=== PATIENT | male | born 1965 | race Caucasian/White ===

== ENCOUNTER 2021-09-12 08:20 | Day surgery (SDC) | payer BC ==
[2021-09-10 15:26] VITALS: BMI 29.8
[~2021-09-12 08:20] MED LIST: LACTATED RINGERS 1,000 ML IV SCH; LIDOCAINE 1% (10MG/ML) FOR IV START INTRADERMA PRN
[2021-09-12 08:57] VITALS: TEMP 98.1
[2021-09-12] MEDS ORDERED: PROPOFOL 10 MG/ML 20 ML VIAL IV ONE (09:15)
--- NOTE | 2021-09-12 09:31 | P.PCN ---
Date of Procedure: 09/12/21 Procedure(s) Performed: BRIEF HISTORY: Patient is a 56-year-old pleasant white male scheduled for an elective colonoscopy as a part of screening for colon cancer. PROCEDURE PERFORMED: Colonoscopy. PREOPERATIVE DIAGNOSIS: Screening for colon cancer. IV sedation per Anesthesia. PROCEDURE: After informed consent was obtained, the patient, was brought into the endoscopy unit. IV sedation was administered by Anesthesia under continuous monitoring. Digital rectal examination was normal. Initially the Olympus CF-160 flexible video colonoscope was then inserted in the rectum, gradually advanced into the cecum without any difficulty. Careful examination was performed as the scope was gradually being withdrawn. Ileocecal valve and the appendiceal orifice were visualized and appeared normal. Prep was excellent. Mucosa of the cecum, ascending colon, transverse colon, descending colon, sigmoid colon, and rectum appeared normal. Retroflexion was performed in the rectum and no lesions were seen. The patient tolerated the procedure well. IMPRESSION: Normal-appearing colon from rectum to cecum with no evidence of colorectal neoplasia . RECOMMENDATIONS: Findings of this examination were discussed with the patient as well as his family. Was advised to have a repeat screening colonoscopy in 10 years.
[2021-09-12 09:41] VITALS: RESP 16
[2021-09-12 10:00] VITALS: BP 147/89; PULSE 66
== END 2021-09-12 10:27 | disposition home or self-care (01) ==
LOC: ORWHC2ENDO 08:20
PROVIDERS: ATTEND Internal Medicine Gastroenterology
DX: Z12.11 Encounter for screening for malignant neoplasm of colon (principal); K21.9 Gastro-esophageal reflux disease without esophagitis; I10 Essential (primary) hypertension; Z79.899 Other long term (current) drug therapy; Z98.890 Other specified postprocedural states
CPT/HCPCS: J2704; G0121; 45378

== ENCOUNTER → 2021-10-23 | Outpatient (CLI) | payer BC ==
--- NOTE | 2021-10-23 08:25 | US ---
EXAMINATION TYPE: US kidneys/renal and bladder DATE OF EXAM: 10/23/2021 COMPARISON: NONE CLINICAL HISTORY: R93.89 Abnormal findings.Patient states abnormal CT done at [facility] EXAM MEASUREMENTS: Right Kidney: 11.0 x 6.7 x 6.4 cm Left Kidney: 12.6 x 6.2 x 5.9 cm Post Void Residual Volume: 35.4 mL Right Kidney: Lateral Cyst with internal echos = 2.5 x 1.8 x 1.4 cm, No hydronephrosis seen. ? normal renal hump = 3.7 cm Left Kidney: No hydronephrosis or masses seen Bladder: wnl Bilateral Jets seen: Yes Normal Post Void Residual: Yes There is no evidence for hydronephrosis at this point in time. No nephrolithiasis is seen. No solid masses are identified. The urinary bladder is anechoic. Bilateral ureteral jets are seen. IMPRESSION: Right renal cyst. Otherwise unremarkable study
== END | disposition home or self-care (01) ==
LOC: RADUSWWP 07:44
PROVIDERS: ATTEND Family Medicine
DX: N28.1 Cyst of kidney, acquired (principal)
CPT/HCPCS: 76770

== ENCOUNTER → 2022-08-28 | Outpatient (CLI) | payer BC ==
--- NOTE | 2022-08-28 16:58 | CA ---
Transthoracic Echo Report Name: Ga Kessler Age: 57 Gender: M : 1965 Exam Date: 08/28/2022 15:06 Exam Location: [facility] Ht (in): 72 Wt (lb): 220 Ordering Physician: Gregory Saldaña MD Attending/Referring Phys: Myrna Shah COUNT INCLUDES THE [facility] Ends Breakage Clerk Yolanda Fowler RDCS Procedure CPT: Indications: Z82.49 family hx Cardiac Hx: Technical Quality: Good Contrast 1: Total Dose (mL): Contrast 2: Total Dose (mL): MEASUREMENTS (Male / Female) Normal Values 2D ECHO LV Diastolic Diameter PLAX 5.3 cm 4.2 - 5.9 / 3.9 - 5.3 cm LV Systolic Diameter PLAX 3.3 cm IVS Diastolic Thickness 1.2 cm 0.6 - 1.0 / 0.6 - 0.9 cm LVPW Diastolic Thickness 1.1 cm 0.6 - 1.0 / 0.6 - 0.9 cm LV Relative Wall Thickness 0.4 RV Internal Dim ED PLAX 3.3 cm LA Systolic Diameter LX 3.5 cm 3.0 - 4.0 / 2.7 - 3.8 cm LA Volume 54.5 cm??? 18 - 58 / 22 - 52 cm??? M-MODE Aortic Root Diameter MM 3.8 cm MV E Point Septal Separation 0.8 cm AV Cusp Separation MM 2.3 cm DOPPLER AV Peak Velocity 121.5 cm/s AV Peak Gradient 5.9 mmHg MV Area PHT 3.4 cm??? Mitral E Point Velocity 80.6 cm/s Mitral A Point Velocity 71.3 cm/s Mitral E to A Ratio 1.1 MV Deceleration Time 220.3 ms MV E' Velocity 7.8 cm/s Mitral E to MV E' Ratio 10.3 TR Peak Velocity 230.8 cm/s TR Peak Gradient 21.3 mmHg Right Ventricular Systolic Press 25.6 mmHg FINDINGS Left Ventricle Left ventricular ejection fraction is estimated at 60-65 %. Left ventricular cavity size normal. Mildly increased septal wall thickness. Right Ventricle Normal right ventricular size and function. Right ventricular systolic pressure within normal limits. Right Atrium Normal right atrial size. Left Atrium Normal left atrial size. No evidence for an atrial septal defect. Mitral Valve Structurally normal mitral valve. No mitral stenosis, regurgitation or prolapse. Aortic Valve Trileaflet aortic valve. No aortic valve stenosis or regurgitation. Tricuspid Valve Trace to mild tricuspid regurgitation. Pulmonic Valve Trace pulmonic regurgitation. Pericardium Normal pericardium. No pericardial effusion. Aorta Mild aortic dilatation at the level of the sinuses of valsalva 38 mm CONCLUSIONS Normal LV systolic function Previewed by: Dr. Jaycob Zepeda MD (Electronically Signed) Final Date: 28 August 2022 16:57
== END | disposition home or self-care (01) ==
LOC: RADECHMAIN 15:03
PROVIDERS: ATTEND Family Medicine
DX: Z82.49 Family history of ischemic heart disease and other diseases of the circulatory system (principal)
CPT/HCPCS: 93306

== ENCOUNTER → 2024-10-01 | Outpatient (CLI) | payer BC ==
[2024-10-01 15:44] LABS: Basophils # (A) 0.06 X 10*3/uL (0.00-0.10); Basophils % (A) 0.7 %; Eosinophils # (A) 0.54 X 10*3/uL (0.04-0.35); Eosinophils % (A) 6.1 %; HCT 45.4 % (39.6-50.0); HGB 15.9 g/dL (13.0-17.0); Lymphocytes # (A) 2.04 X 10*3/uL (0.90-5.00); Lymphocytes % (A) 23.2 %; MCH 32.4 pg (27.0-32.0); MCV 92.7 FL (80.0-97.0); Mean Platelet Volume 10.5 FL (9.5-12.2); Monocytes # (A) 0.51 X 10*3/uL (0.20-1.00); Monocytes % (A) 5.8 %; NRBC Per 100 WBC 0 X 10*3/uL (0.00-0.01); Neutrophils # (A) 5.62 X 10*3/uL (1.80-7.70); Neutrophils % (A) 63.9 %; Platelet Count 249 X 10*3/uL (140-440); RDW 12.2 % (11.5-14.5)
== END | disposition home or self-care (01) ==
LOC: LABWHC1 09:38
PROVIDERS: ATTEND Surgery
DX: Z01.818 Encounter for other preprocedural examination (principal); K40.90 Unilateral inguinal hernia, without obstruction or gangrene, not specified as recurrent
CPT/HCPCS: 36415; 85025; 86850; 86900; 86901; 93005

== ENCOUNTER → 2024-10-08 | Day surgery (SDC) | payer BC ==
[2024-10-06 16:10] VITALS: BMI 27.8
[~2024-10-08] MED LIST changes: +ACETAMINOPHEN TAB 325 MG TAB PO SCH; +GLYCOPYRROLATE 0.2 MG/ML 2 ML VIAL ONE; +HYDROmorphone 0.5 MG/0.5 ML SYRINGE IVP PRN; +IBUPROFEN 600 MG TAB PO SCH; +KETAMINE HCL IN 0.9 % NACL 50 MG/5 ML SYRINGE ONE; +KETOROLAC 15 MG/ML 1 ML VIAL ONE; +LIDOCAINE 1% INJ 10MG/ML (20 ML MDV) ONE; +LIDOCAINE 4% LTA KIT (4 ML) TOPICAL ONE; +MIDAZOLAM 2 MG/2 ML VIAL ONE; +NEOSTIGMINE 1 MG/ML 10 ML VIAL ONE; +PROPOFOL 10 MG/ML 20 ML VIAL IV ONE; +ROCURONIUM 10 MG/ML (5 ML VIAL) IV ONE; +SUCCINYLCHOLINE CHLORIDE 200 MG/10 ML VIAL IV ONE; +droPERidol 5 MG/2 ML VIAL IVP ONE; +fentaNYL (PF) 50 MCG/ML 2 ML AMP ONE
[2024-10-08] MEDS: IV FLUID CONTINUATION 1,000 ML IV ONE ×2 (08:36→14:19)
[2024-10-08] MEDS: ONDANSETRON 4 MG/2 ML VIAL IVP ONE (08:41)
[2024-10-08] MEDS: DEXAMETHASONE SOD PHOSPHATE 4 MG/ML 1 ML VIAL IV ONE (08:41)
[2024-10-08] MEDS: HEPARIN SODIUM,PORCINE 5,000 UNIT/ML 1 ML VIAL SQ PRN (08:42)
[2024-10-08] MEDS: ACETAMINOPHEN TAB 500 MG TAB PO PRN (08:42)
--- NOTE | 2024-10-08 09:19 | P.GSHP ---
History of Present Illness H&P Date: 10/08/24 Chief Complaint: Left inguinal hernia 59-year-old male presents today for elective left inguinal hernia repair. Patient with history of previous open repair right inguinal hernia and previous laparoscopic da Cash assisted repair of a umbilical hernia. Complaining of increasing pain and swelling left groin. Non-smoker. Past Medical History Past Medical History: GERD/Reflux, Hyperlipidemia, Hypertension Additional Past Medical History / Comment(s): HIATAL HERNIA. History of Any Multi-Drug Resistant Organisms: MRSA Date of last positivie culture/infection: [id number] MDRO Source:: BUTTOCKS Past Surgical History: Hernia Repair, Tonsillectomy Additional Past Surgical History / Comment(s): INGUINAL HERNIA, UMBILICAL HERNIA AREA, RECTAL SPHINCTER SURGERY. Past Anesthesia/Blood Transfusion Reactions: No Reported Reaction Smoking Status: Never smoker - Past Family History Mother Family Medical History: No Reported History Brother(s) Family Medical History: Cancer Sister(s) Family Medical History: Cancer Additional Family Medical History / Comment(s): SKIN CANCER. Medications and Allergies Home Medications Medication Instructions Recorded Confirmed Type Omeprazole [PriLOSEC] 20 mg PO DAILY 09/10/21 10/08/24 History Losartan/Hydrochlorothiazide 1 tab PO DAILY 10/06/24 10/08/24 History [Losartan-Hctz 100-25 mg Tab] Vitamin D (Unknown Dose) 1 tab PO DAILY 10/06/24 10/08/24 History Allergies Allergy/AdvReac Type Severity Reaction Status Date / Time No Known Allergies Allergy Verified 10/08/24 08:47 Surgical - Exam Vital Signs Temp Pulse Resp BP Pulse Ox 96.7 F L 66 18 157/89 93 L 10/08/24 08:47 10/08/24 08:47 10/08/24 08:47 10/08/24 08:47 10/08/24 08:47 Physical exam: General: Well-developed, well-nourished HEENT: Normocephalic, sclerae nonicteric Abdomen: Nontender, nondistended, left inguinal hernia Extremities: No edema Neuro: Alert and oriented Assessment and Plan (1) Left inguinal hernia Narrative/Plan: 59-year-old male with left inguinal hernia. Will proceed with left inguinal hernia repair laparoscopic da Cash assisted with mesh, possible open, possible bilateral. Risks of bleeding, infection, recurrence, bladder and bowel injury, numbness, nerve injury, conversion to an open procedure were discussed with the patient. The patient understands and wishes to proceed. Current Visit: Yes Status: Acute Code(s): K40.90 - UNIL INGUINAL HERNIA, W/O OBST OR GANGR, NOT SPCF RECUR SNOMED Code(s): 079295832
[2024-10-08] MEDS: FAMOTIDINE 20 MG/2 ML VIAL IV STA (09:21)
[2024-10-08] MEDS: TAMSULOSIN 0.4 MG CAP.ER.24H PO STA (09:23)
[2024-10-08] MEDS: LIDOCAINE 1%-EPI 1:100,000 20 ML VIAL SQ ONE (09:53)
[2024-10-08 11:31] VITALS: TEMP 97.2
--- NOTE | 2024-10-08 11:45 | P.OP ---
Date of Procedure: 10/08/24 Procedure(s) Performed: PREOPERATIVE DIAGNOSIS: Left inguinal hernia POSTOPERATIVE DIAGNOSIS: Same PROCEDURE: Laparoscopic da Cash assisted repair left inguinal hernia with mesh SURGEON: Dr. Hauser ANESTHESIA: General EBL: 5 cc OPERATIVE PROCEDURE DETAILS: Patient was placed in the operating table in the spe[place] pine position. The patient was placed under general anesthesia. The abdomen was prepped and draped in usual sterile fashion. A small horizontal incision was made in the left midabdomen. The optical trocar was used to enter the peritoneal cavity given the patient's history of previous laparoscopic umbilical hernia repair. Thankfully there were no adhesions to the mesh that was present at the umbilicus. An additional 8 mm trocar was placed in the suprapubic location under direct visitation as well as an 8 mm trocar in the right upper quadrant. The initial 5 was then switched to an 8 mm trocar as well. The robotic arms were then brought in and docked into place. The fenestrated bipolar was used in the left arm and the laparoscopic estrella was utilized in the right arm. A 30 8 mm scope was used in the up position. The peritoneal cavity was inspected. There was noted to be a moderate-sized indirect hernia on the left-hand side. The peritoneum was incised in a horizontal fashion cephalad to the internal inguinal ring. Following that careful dissection of the preperitoneal space took place. This took place using both electrocautery, sharp dissection but primarily blunt dissection. Visualization of the pubic tubercle and Cornelius's ligament took place medially. Full dissection took place laterally as well. The hernia sac was fully dissected. There was no visible cord lipoma penetrating through the internal inguinal ring. Once we had adequate space the [id number] Progrip mesh was advanced into the preperitoneal space and flattened out appropriately to cover all potential hernia sites. The mesh was sutured medially to the folding edge of Cornelius's ligament. This was performed using a absorbable 3-0 V-Loc suture. The peritoneal defect was then closed using a absorbable 2-0 VLok suture. The hernia sac was incorporated into the peritoneal closure to help prevent future recurrence. The pneumoperitoneum was then evacuated. The skin of all 3 sites was closed using a 4-0 Monocryl stitch. Skin glue was then applied. TYPE OF MESH USED: 15 x 10 cm ProGrip LOCATION OF MESH: Preperitoneal FIXATION: Absorbable 3 oh V-Loc PREOPERATIVE DISCUSSION ON SMOKING CESSASTION: Yes PREOPERATIVE DISCUSSION ON MORBID OBESITY: Yes PREOPERATIVE DISCUSSION ON APPROPRIATE USE OF NARCOTIC USE: Yes PREOPERATIVE EDUCATION: Multi Modal, Smoking Cessation and Weight Loss with BMI over 35. DISPOSITION: Stable to recovery room
[2024-10-08 14:19] VITALS: RESP 16
[2024-10-08 16:06] VITALS: BP 172/79; PULSE 62
== END ==
LOC: OR 08:22
PROVIDERS: ATTEND Surgery
DX: K40.90 Unilateral inguinal hernia, without obstruction or gangrene, not specified as recurrent (principal); E78.5 Hyperlipidemia, unspecified; I10 Essential (primary) hypertension; K21.9 Gastro-esophageal reflux disease without esophagitis; Z90.89 Acquired absence of other organs; Z98.890 Other specified postprocedural states; Z79.899 Other long term (current) drug therapy
CPT/HCPCS: 49650; S2900